=== PATIENT | female | born 1965 | race Caucasian/White ===

== ENCOUNTER 2022-12-07 10:11 | Inpatient (IN) | payer MEDICAID, OTHER ==
[~2022-12-07] VITALS: Ht 167.6 cm; Wt 101.8 kg
[2022-12-07] MEDS ORDERED: SODIUM CHLORIDE 0.9% 1,000 ML IV ONE (11:15)
[2022-12-07 11:34] VITALS: PULSE 80; RESP 20; O2SAT 97
[2022-12-07 11:46] LABS: Basophils # (auto) 0.1 10 ^3/uL (0-0.2); Eosinophils # (auto) 0.3 10 ^3/uL (0-0.8); Eosinophils % (auto) 2.7 % (0.0-7.0); Hematocrit 36.6 % (36.0-46.0); Hemoglobin 11.9 g/dL (12.2-16.2); Lymphocytes # (auto) 3.6 10 ^3/uL (0.4-5.4); Lymphocytes % (auto) 31.6 % (10.0-50.0); Mean Corpuscular Hemoglobin 27.6 pg (28.0-32.0); Mean Corpuscular Hgb Conc. 32.5 g/dL (32.0-36.0); Mean Corpuscular Volume 84.8 fL (80.0-100.0); Monocytes # (auto) 0.8 10 ^3/uL (0-1.3); Neutrophils # (auto) 6.5 10 ^3/uL (1.6-8.6); Neutrophils % (auto) 57.7 % (37.0-80.0); Nucleated Red Blood Cells % 0.1 %; Red Blood Cells 4.31 10^6/uL (4.0-5.20); White Blood Cell 11.3 10^3/uL (4.4-10.8)
[2022-12-07] MEDS ORDERED: HEPARIN DRIP/D5W 100UNITS/ML 250 ML IV SCH ×2 (12:00→17:45)
[2022-12-07 12:03] LABS: Alanine Aminotransferase 10 U/L (7-40); Albumin 3.6 g/dL (3.2-4.8); Alkaline Phosphatase 89 U/L (46-116); Anion Gap 7.1 (5-15); Aspartate Aminotransferase 13 U/L (13-40); BUN/Creatinine Ratio 14.7 (10.0-20.0); Blood Urea Nitrogen 22 mg/dL (9-23); Calcium 8.4 mg/dL (8.5-10.1); Carbon Dioxide 20.9 mmol/L (20-30); Chloride 108 mmol/L (98-107); Glucose 144 mg/dL (74-106); Magnesium 1.7 mg/dL (1.6-2.6); Potassium 5.4 mmol/L (3.5-5.1); Sodium 136 mmol/L (136-145)
[2022-12-07 12:04] LABS: Bilirubin, Total 0.4 mg/dL (0.2-1.0); Total Protein 6.1 g/dL (5.7-8.2)
[2022-12-07 12:07] LABS: INR 1.02 (0.9-1.15); Prothrombin Time 10.7 sec (9.3-11.8)
[2022-12-07] MEDS: SODIUM CHLORIDE 0.9% 1,000 ML IV SCH ×2 (12:15→23:16)
[2022-12-07] MEDS ORDERED: NITROGLYCERIN 0.4 MG SL TAB SL PRN (12:15)
[2022-12-07] MEDS ORDERED: ASPirin 81 mg TAB PO ONE (12:30)
[2022-12-07] MEDS: MORPHINE SULFATE INJ 2 MG/ml SYRG IV PRN ×4 (12:37→21:48)
[2022-12-07 17:16] LABS: INR 1.03 (0.9-1.15); Partial Thromboplastin Time 34.9 SEC (24.5-34.5); Prothrombin Time 10.8 sec (9.3-11.8)
[2022-12-07] MEDS ORDERED: HEPARIN SODIUM (PORCINE) 5000 UNITS/ML 1ML VIAL IV ONE (17:45)
[2022-12-07 19:30] VITALS: PULSE 74; RESP 18; O2SAT 98
[2022-12-07] MEDS ORDERED: DEXTROSE (50%) 50ML SYRG IV PRN (19:30)
[2022-12-07] MEDS: ONDANSETRON HCL 4 MG/2 ML VIAL IV PRN (20:41)
[2022-12-07] MEDS ORDERED: diphenhdrAMINE HCL 50 MG/1 ML VL ONE (21:13)
[2022-12-07] MEDS ORDERED: diphenhdrAMINE HCL 50 MG/1 ML VL IV PRN (21:15)
[2022-12-07] MEDS: ACCU-CHEK COMFORT CURVE STRIP VI SCH (23:00)
[2022-12-07] MEDS: InsuLIN REG 1unit/0.01ml Soln (100units/ml) SC SCH (23:00)
[2022-12-07] MEDS: ATORVASTATIN 20 MG TAB PO SCH (23:10)
[2022-12-07] MEDS: CARVEDILOL 3.125 MG TAB PO SCH (23:11)
[2022-12-08] VITALS (27 sets, daily range): BP systolic 120–169; BP diastolic 53–87; PULSE 66–79; RESP 10–20; TEMP 97.8–98.3; O2SAT 85–100
[2022-12-08 00:27] LABS: INR 1.08 (0.9-1.15); Prothrombin Time 11.3 sec (9.3-11.8)
[2022-12-08 00:46] LABS: Partial Thromboplastin Time > 139.0 SEC (24.5-34.5)
[2022-12-08] MEDS: HEPARIN DRIP/D5W 100UNITS/ML 250 ML IV SCH ×3 (04:30→15:35)
[2022-12-08] MEDS: SODIUM CHLORIDE 0.9% 1,000 ML IV SCH ×3 (05:28→21:35)
[2022-12-08] MEDS: InsuLIN REG 1unit/0.01ml Soln (100units/ml) SC SCH ×4 (06:48→22:00)
[2022-12-08] MEDS: ACCU-CHEK COMFORT CURVE STRIP VI SCH ×4 (06:48→22:20)
[2022-12-08 08:22] LABS: INR 1.03 (0.9-1.15); Partial Thromboplastin Time 55.7 SEC (24.5-34.5); Prothrombin Time 10.8 sec (9.3-11.8)
[2022-12-08 08:31] LABS: Albumin 3.7 g/dL (3.2-4.8); Alkaline Phosphatase 91 U/L (46-116); Anion Gap 5.7 (5-15); Aspartate Aminotransferase 15 U/L (13-40); BUN/Creatinine Ratio 13.3 (10.0-20.0); Bilirubin, Total 0.4 mg/dL (0.2-1.0); Blood Urea Nitrogen 19 mg/dL (9-23); Calcium 8.7 mg/dL (8.5-10.1); Carbon Dioxide 24.3 mmol/L (20-30); Chloride 109 mmol/L (98-107); Cholesterol 107 mg/dL (< 200); Glucose 103 mg/dL (74-106); HDL Cholesterol 29 mg/dL (40-59); LDL Cholesterol 58 mg/dL (< 100); Magnesium 1.6 mg/dL (1.6-2.6); Sodium 139 mmol/L (136-145); Total Protein 6.6 g/dL (5.7-8.2); Triglycerides 84 mg/dL (< 150)
[2022-12-08 08:32] LABS: Alanine Aminotransferase < 9 U/L (7-40)
[2022-12-08 09:01] LABS: Hematocrit 35.3 % (36.0-46.0); Hemoglobin 11.6 g/dL (12.2-16.2)
[2022-12-08] MEDS ORDERED: DOCU-265 PO (09:33)
[2022-12-08] MEDS ORDERED: ESOM40CA83 PO (09:33)
[2022-12-08] MEDS ORDERED: LIDO1PAD55 TOP (09:33)
[2022-12-08] MEDS ORDERED: HYDR-4072 PO (09:33)
[2022-12-08] MEDS ORDERED: CYCL-611 PO (09:33)
[2022-12-08] MEDS: ASPirin 81 mg TAB PO SCH (09:34)
[2022-12-08] MEDS: CARVEDILOL 3.125 MG TAB PO SCH ×2 (09:34→22:19)
[2022-12-08] MEDS: MORPHINE SULFATE INJ 2 MG/ml SYRG IV PRN ×3 (09:35→22:23)
[2022-12-08] MEDS: ONDANSETRON HCL 4 MG/2 ML VIAL IV PRN ×2 (09:42→15:11)
[2022-12-08 14:58] LABS: INR 1.04 (0.9-1.15); Partial Thromboplastin Time 48.5 SEC (24.5-34.5); Prothrombin Time 10.9 sec (9.3-11.8)
[2022-12-08] MEDS: ATORVASTATIN 20 MG TAB PO SCH (22:19)
[2022-12-08 22:20] LABS: INR 1.04 (0.9-1.15); Partial Thromboplastin Time 55.6 SEC (24.5-34.5); Prothrombin Time 10.9 sec (9.3-11.8)
[2022-12-09] MEDS: ONDANSETRON HCL 4 MG/2 ML VIAL IV PRN ×3 (04:03→16:43)
[2022-12-09] MEDS: MORPHINE SULFATE INJ 2 MG/ml SYRG IV PRN ×4 (04:04→22:09)
[2022-12-09] MEDS: SODIUM CHLORIDE 0.9% 1,000 ML IV SCH ×3 (05:12→21:16)
[2022-12-09] MEDS: ACCU-CHEK COMFORT CURVE STRIP VI SCH ×4 (06:16→22:00)
[2022-12-09] MEDS: InsuLIN REG 1unit/0.01ml Soln (100units/ml) SC SCH ×4 (06:16→22:00)
[2022-12-09 06:28] LABS: Alanine Aminotransferase 12 U/L (7-40); Alkaline Phosphatase 97 U/L (46-116); Anion Gap 5.9 (5-15); Aspartate Aminotransferase 10 U/L (13-40); BUN/Creatinine Ratio 12.3 (10.0-20.0); Blood Urea Nitrogen 16 mg/dL (9-23); Calcium 8.5 mg/dL (8.7-10.4); Carbon Dioxide 25.1 mmol/L (20-30); Chloride 108 mmol/L (98-107); Glucose 103 mg/dL (74-106); Potassium 5.3 mmol/L (3.5-5.1); Sodium 139 mmol/L (136-145)
[2022-12-09 06:29] LABS: Albumin 3.4 g/dL (3.2-4.8); Bilirubin, Total 0.5 mg/dL (0.2-1.0); Total Protein 5.8 g/dL (5.7-8.2)
[2022-12-09 06:34] LABS: INR 1.07 (0.9-1.15); Partial Thromboplastin Time 54.4 SEC (24.5-34.5); Prothrombin Time 11.2 sec (9.3-11.8)
[2022-12-09] MEDS: HEPARIN DRIP/D5W 100UNITS/ML 250 ML IV SCH ×2 (06:47→21:23)
[2022-12-09 07:16] LABS: Basophils # (auto) 0 10 ^3/uL (0-0.2); Basophils % (auto) 0.6 % (0.0-2.0); Eosinophils # (auto) 0.2 10 ^3/uL (0-0.8); Eosinophils % (auto) 2.8 % (0.0-7.0); Hematocrit 33.3 % (36.0-46.0); Hemoglobin 10.9 g/dL (12.2-16.2); Lymphocytes # (auto) 2.9 10 ^3/uL (0.4-5.4); Mean Corpuscular Hgb Conc. 32.7 g/dL (32.0-36.0); Mean Corpuscular Volume 85.7 fL (80.0-100.0); Monocytes # (auto) 0.6 10 ^3/uL (0-1.3); Monocytes % (auto) 6.6 % (0.0-12.0); Neutrophils # (auto) 4.7 10 ^3/uL (1.6-8.6); Nucleated Red Blood Cells % 0.1 %; Red Blood Cells 3.89 10^6/uL (4.0-5.20); Red Cell Distribution Width 14.8 % (11.8-14.3); White Blood Cell 8.4 10^3/uL (4.4-10.8)
[2022-12-09 09:00] VITALS: BP 109/58; PULSE 78; RESP 21; TEMP 98.4; O2SAT 97
[2022-12-09] MEDS: ASPirin 81 mg TAB PO SCH (09:36)
[2022-12-09] MEDS: CARVEDILOL 3.125 MG TAB PO SCH ×2 (09:37→22:00)
[2022-12-09 17:09] VITALS: BP 114/62; PULSE 79; RESP 17; TEMP 98.7
[2022-12-09] MEDS: ACETAMINOPHEN 325 MG TAB PO PRN (19:27)
[2022-12-09 19:50] LABS: INR 1.07 (0.9-1.15); Partial Thromboplastin Time 48.6 SEC (24.5-34.5); Prothrombin Time 11.2 sec (9.3-11.8)
[2022-12-09 20:00] VITALS: PULSE 70; RESP 16
[2022-12-09] MEDS: SODIUM ZIRCONIUM CYCL 10 GM PAK PO SCH ×2 (21:37→22:00)
[2022-12-09 22:00] VITALS: BP 157/91; PULSE 82; RESP 16; TEMP 98; O2SAT 95
[2022-12-09] MEDS: ATORVASTATIN 20 MG TAB PO SCH (23:54)
[2022-12-10] VITALS (12 sets, daily range): BP systolic 117–188; BP diastolic 56–97; PULSE 68–96; RESP 11–19; TEMP 97.8–98.6; O2SAT 93–99
[2022-12-10] MEDS: HYDROcodone-ACET 5/325MG TAB PO PRN ×2 (01:44→18:11)
[2022-12-10 03:30] LABS: Basophils # (auto) 0.1 10 ^3/uL (0-0.2); Basophils % (auto) 1.1 % (0.0-2.0); Eosinophils # (auto) 0.3 10 ^3/uL (0-0.8); Eosinophils % (auto) 3.5 % (0.0-7.0); Hematocrit 31.4 % (36.0-46.0); Hemoglobin 10.4 g/dL (12.2-16.2); Lymphocytes # (auto) 3.4 10 ^3/uL (0.4-5.4); Mean Corpuscular Hemoglobin 27.9 pg (28.0-32.0); Mean Corpuscular Volume 84.5 fL (80.0-100.0); Monocytes # (auto) 0.5 10 ^3/uL (0-1.3); Monocytes % (auto) 6.9 % (0.0-12.0); Neutrophils # (auto) 3.4 10 ^3/uL (1.6-8.6); Neutrophils % (auto) 44.5 % (37.0-80.0); Red Blood Cells 3.72 10^6/uL (4.0-5.20); Red Cell Distribution Width 14.3 % (11.8-14.3); White Blood Cell 7.7 10^3/uL (4.4-10.8)
[2022-12-10 03:41] LABS: Alanine Aminotransferase 10 U/L (7-40); Albumin 3.4 g/dL (3.2-4.8); Alkaline Phosphatase 90 U/L (46-116); Anion Gap 5.6 (5-15); Aspartate Aminotransferase 11 U/L (13-40); BUN/Creatinine Ratio 9.2 (10.0-20.0); Blood Urea Nitrogen 13 mg/dL (9-23); Calcium 8.3 mg/dL (8.7-10.4); Carbon Dioxide 24.4 mmol/L (20-30); Chloride 107 mmol/L (98-107); Glucose 110 mg/dL (74-106); Potassium 4.6 mmol/L (3.5-5.1); Sodium 137 mmol/L (136-145); Total Protein 5.8 g/dL (5.7-8.2)
[2022-12-10 03:50] LABS: INR 1.09 (0.9-1.15); Prothrombin Time 11.4 sec (9.3-11.8)
[2022-12-10 04:03] LABS: Bilirubin, Total 0.3 mg/dL (0.2-1.0)
[2022-12-10 04:11] LABS: Partial Thromboplastin Time 91.6 SEC (24.5-34.5)
[2022-12-10] MEDS ORDERED: HEPARIN DRIP/D5W 100UNITS/ML 250 ML IV SCH ×3 (05:30→22:30)
[2022-12-10] MEDS: SODIUM ZIRCONIUM CYCL 10 GM PAK PO SCH ×3 (06:00→22:00)
[2022-12-10] MEDS: InsuLIN REG 1unit/0.01ml Soln (100units/ml) SC SCH ×4 (06:26→22:00)
[2022-12-10] MEDS: ACCU-CHEK COMFORT CURVE STRIP VI SCH ×4 (06:27→22:26)
[2022-12-10] MEDS: SODIUM CHLORIDE 0.9% 1,000 ML IV SCH ×3 (06:33→23:35)
[2022-12-10] MEDS: MORPHINE SULFATE INJ 2 MG/ml SYRG IV PRN ×4 (06:47→22:33)
[2022-12-10] MEDS: ASPirin 81 mg TAB PO SCH (10:04)
[2022-12-10] MEDS: CARVEDILOL 3.125 MG TAB PO SCH ×2 (10:05→21:38)
[2022-12-10 12:28] LABS: INR 1.06 (0.9-1.15); Prothrombin Time 11.1 sec (9.3-11.8)
[2022-12-10] MEDS ORDERED: HEPARIN SODIUM (PORCINE) 5000 UNITS/ML 1ML VIAL ONE (14:30)
[2022-12-10] MEDS ORDERED: ANGIOMAX 250 MG VIAL IV ONE (14:30)
[2022-12-10] MEDS ORDERED: VERAPAMIL 2.5MG/ML INJ 2ML VIAL IV ONE (14:30)
[2022-12-10] MEDS ORDERED: fentaNYL CITRATE 100 MCG/2 ML VL ONE (14:30)
[2022-12-10] MEDS ORDERED: MIDAZOLAM HCL 2MG/2ML 2ml VIAL (1mg/ml) ONE (14:30)
[2022-12-10] MEDS ORDERED: LIDOCAINE 2%HCL (LOCAL ANESTH.) INJ 20ML MDV ONE (14:31)
[2022-12-10] MEDS ORDERED: IODIXANOL 320MG/ML 100ML BTL IV ONE (14:31)
[2022-12-10] MEDS ORDERED: SODIUM CHL 0.9% 0 ML ONE (14:31)
[2022-12-10] MEDS ORDERED: hydrALAZINE HCL 20 MG/ML VL IV PRN (16:45)
[2022-12-10 17:37] LABS: Basophils # (auto) 0.1 10 ^3/uL (0-0.2); Basophils % (auto) 0.7 % (0.0-2.0); Eosinophils # (auto) 0.3 10 ^3/uL (0-0.8); Eosinophils % (auto) 3.1 % (0.0-7.0); Hematocrit 36.4 % (36.0-46.0); Lymphocytes # (auto) 2.9 10 ^3/uL (0.4-5.4); Lymphocytes % (auto) 31.6 % (10.0-50.0); Mean Corpuscular Hemoglobin 27.7 pg (28.0-32.0); Monocytes # (auto) 0.6 10 ^3/uL (0-1.3); Monocytes % (auto) 6.3 % (0.0-12.0); Neutrophils # (auto) 5.4 10 ^3/uL (1.6-8.6); Neutrophils % (auto) 58.3 % (37.0-80.0); Red Blood Cells 4.33 10^6/uL (4.0-5.20); Red Cell Distribution Width 14.9 % (11.8-14.3); White Blood Cell 9.3 10^3/uL (4.4-10.8)
[2022-12-10 19:10] LABS: Protein, Urine 30.3 mg/dL (0.0-11.9)
[2022-12-10 19:12] LABS: Creatinine, Urine 8.75 mg/dL (30.0-125.0); Urine Protein/Creatinine Ratio 3.46
[2022-12-10 19:23] LABS: Urine Bacteria FEW /hpf (None Seen); Urine Blood Negative /uL (Negative); Urine Clarity Clear (Clear); Urine Color Colorless (Yellow); Urine Hyaline Cast FEW /lpf (0 - 2); Urine Protein, UAD TRACE (Negative); Urine Specific Gravity 1.009 (1.001-1.035); Urine Urobilinogen Normal (Negative); Urine WBC <1 /hpf (0 - 5); Urine pH 6.5 (5.0-8.0)
[2022-12-10 19:42] LABS: INR 1.07 (0.9-1.15); Partial Thromboplastin Time 47.8 SEC (24.5-34.5); Prothrombin Time 11.2 sec (9.3-11.8)
[2022-12-10 22:00] LABS: INR 1.1 (0.9-1.15); Partial Thromboplastin Time 42.2 SEC (24.5-34.5); Prothrombin Time 11.5 sec (9.3-11.8)
[2022-12-10] MEDS: ATORVASTATIN 20 MG TAB PO SCH (22:31)
[2022-12-10] MEDS: ACETAMINOPHEN 325 MG TAB PO PRN (22:32)
[2022-12-11] MEDS: ONDANSETRON HCL 4 MG/2 ML VIAL IV PRN (02:14)
[2022-12-11 05:00] VITALS: BP 123/62; PULSE 72; RESP 16; TEMP 98.3; O2SAT 94
[2022-12-11] MEDS: SODIUM ZIRCONIUM CYCL 10 GM PAK PO SCH ×2 (05:44→15:35)
[2022-12-11 06:20] LABS: INR 1.12 (0.9-1.15); Partial Thromboplastin Time 48.7 SEC (24.5-34.5); Prothrombin Time 11.7 sec (9.3-11.8)
[2022-12-11] MEDS: MORPHINE SULFATE INJ 2 MG/ml SYRG IV PRN ×3 (07:32→16:52)
[2022-12-11] MEDS: SODIUM CHLORIDE 0.9% 1,000 ML IV SCH ×2 (07:55→16:15)
[2022-12-11] MEDS: HEPARIN DRIP/D5W 100UNITS/ML 250 ML IV SCH ×2 (08:48→11:50)
[2022-12-11 09:00] VITALS: BP 134/67; PULSE 84; RESP 18; TEMP 97.9; O2SAT 97
[2022-12-11] MEDS: ACCU-CHEK COMFORT CURVE STRIP VI SCH ×3 (09:29→16:59)
[2022-12-11] MEDS: ACETAMINOPHEN 325 MG TAB PO PRN (09:29)
[2022-12-11] MEDS: ASPirin 81 mg TAB PO SCH (09:29)
[2022-12-11] MEDS: CARVEDILOL 3.125 MG TAB PO SCH (09:31)
[2022-12-11 09:46] LABS: Chloride 106 mmol/L (98-107); Potassium 3.8 mmol/L (3.5-5.1); Sodium 139 mmol/L (136-145)
[2022-12-11] MEDS: InsuLIN REG 1unit/0.01ml Soln (100units/ml) SC SCH ×3 (09:47→16:57)
[2022-12-11 09:48] LABS: Anion Gap 10.1 (5-15); Calcium 8.5 mg/dL (8.5-10.1); Carbon Dioxide 22.9 mmol/L (20-30)
[2022-12-11 09:53] LABS: BUN/Creatinine Ratio 10.3 (10.0-20.0); Blood Urea Nitrogen 12 mg/dL (9-23); Glucose 89 mg/dL (74-106)
[2022-12-11 13:39] LABS: COVID19 ANTIGEN SOFIA FIA NEGATIVE (NEGATIVE)
[2022-12-11 14:07] VITALS: BP 120/64; PULSE 87; TEMP 36.6
[2022-12-11 14:21] LABS: INR 1.11 (0.9-1.15); Partial Thromboplastin Time 44.1 SEC (24.5-34.5); Prothrombin Time 11.6 sec (9.3-11.8)
[2022-12-11] MEDS ORDERED: HEPARIN DRIP/D5W 100UNITS/ML 250 ML IV SCH (16:15)
[2022-12-11 16:38] VITALS: BP 141/77; PULSE 70; RESP 20; TEMP 98.7; O2SAT 98
[2022-12-11 17:22] VITALS: BP 141/75; PULSE 80; RESP 20
== END 2022-12-11 17:47 | disposition short-term general hospital (02) | DRG 190 ==
LOC: ER 10:11 → EDBD 10:11 → TELE 12:19 → DOU IN ICU 23:52 → TELE-WESTW 12-08 23:15
PROVIDERS: ADMIT Internal Medicine; ATTEND Internal Medicine
PROC: 4A023N7 Measurement of Cardiac Sampling and Pressure, Left Heart, Percutaneous Approach (ICD-10-PCS; principal; 2022-12-10)
PROC: B211YZZ Fluoroscopy of Multiple Coronary Arteries using Other Contrast (ICD-10-PCS; 2022-12-10)
PROC: B215YZZ Fluoroscopy of Left Heart using Other Contrast (ICD-10-PCS; 2022-12-10)
DX: I21.4 Non-ST elevation (NSTEMI) myocardial infarction (principal); N17.0 Acute kidney failure with tubular necrosis; E11.22 Type 2 diabetes mellitus with diabetic chronic kidney disease; D63.1 Anemia in chronic kidney disease; I13.0 Hypertensive heart and chronic kidney disease with heart failure and stage 1 through stage 4 chronic kidney disease, or unspecified chronic kidney disease; I25.10 Atherosclerotic heart disease of native coronary artery without angina pectoris; E11.51 Type 2 diabetes mellitus with diabetic peripheral angiopathy without gangrene; E87.5 Hyperkalemia; N18.32 Chronic kidney disease, stage 3b; K21.9 Gastro-esophageal reflux disease without esophagitis; M54.50 Low back pain, unspecified; F12.90 Cannabis use, unspecified, uncomplicated; E66.01 Morbid (severe) obesity due to excess calories; G89.29 Other chronic pain; E78.5 Hyperlipidemia, unspecified; I25.5 Ischemic cardiomyopathy; J44.9 Chronic obstructive pulmonary disease, unspecified; Z82.49 Family history of ischemic heart disease and other diseases of the circulatory system; Z83.3 Family history of diabetes mellitus; Z95.820 Peripheral vascular angioplasty status with implants and grafts; Z85.528 Personal history of other malignant neoplasm of kidney; Z68.36 Body mass index [BMI] 36.0-36.9, adult; I25.2 Old myocardial infarction; Z90.49 Acquired absence of other specified parts of digestive tract; Z90.5 Acquired absence of kidney; Z95.1 Presence of aortocoronary bypass graft; Z87.891 Personal history of nicotine dependence
CPT/HCPCS: 36415; 71045; 76775; 80048; 80053; 80061; 81001; 82306; 82570; 82962; 83735; 83970; 84100; 84156; 84300; 84443; 84484; 85014; 85018; 85025; 85049; 85610; 85730; 87081; 87426; 93005; 93306; 93458; 96365; 96366; 96375; 97163; 99152; G0378; J1815; J2250; J2405; Q9967

== ENCOUNTER 2023-06-09 07:54 | Day surgery (SDC) | payer MEDICAID ==
[2023-06-09] VITALS (8 sets, daily range): BP systolic 157–177; BP diastolic 80–102; PULSE 81–85; RESP 11–19; TEMP 97.7; O2SAT 96–97
[~2023-06-09] VITALS: Ht 170.2 cm; Wt 97.1 kg
[~2023-06-09 07:54] MED LIST: ASPI-378 PO; ATOR-47 PO; CARV3.1240 PO; CLOP75TA70 PO; CYCL-611 PO; DOCU-265 PO; ESOM40CA83 PO; GLIP5TAB5 PO; HYDR-4072 PO; PERCOT PO
[2023-06-09] MEDS ORDERED: ANGIOMAX 250 MG VIAL IV ONE (08:52)
[2023-06-09] MEDS ORDERED: VERAPAMIL 2.5MG/ML INJ 2ML VIAL IV ONE (08:52)
[2023-06-09] MEDS ORDERED: LIDOCAINE 2%HCL (LOCAL ANESTH.) INJ 20ML MDV ONE (08:52)
[2023-06-09] MEDS ORDERED: SODIUM CHL 0.9% 0 ML ONE (08:52)
[2023-06-09] MEDS ORDERED: fentaNYL CITRATE 100 MCG/2 ML VL ONE (08:52)
[2023-06-09] MEDS ORDERED: IODIXANOL 320MG/ML 100ML BTL IV ONE (08:52)
[2023-06-09] MEDS ORDERED: MIDAZOLAM HCL 2MG/2ML 2ml VIAL (1mg/ml) ONE (08:52)
[2023-06-09] MEDS ORDERED: HEPARIN SODIUM (PORCINE) 5000 UNITS/ML 1ML VIAL ONE (08:52)
[2023-06-09] MEDS: HYDROcodone-ACET 5/325MG TAB PO ONE (11:47)
== END 2023-06-09 12:53 | disposition home or self-care (01) ==
LOC: CATH 07:54
PROVIDERS: ATTEND Internal Medicine
DX: I25.799 Atherosclerosis of other coronary artery bypass graft(s) with unspecified angina pectoris (principal); R94.39 Abnormal result of other cardiovascular function study; I25.82 Chronic total occlusion of coronary artery; E11.9 Type 2 diabetes mellitus without complications; Z95.828 Presence of other vascular implants and grafts; Z85.528 Personal history of other malignant neoplasm of kidney; Z82.49 Family history of ischemic heart disease and other diseases of the circulatory system; Z80.42 Family history of malignant neoplasm of prostate; Z87.891 Personal history of nicotine dependence; Z79.82 Long term (current) use of aspirin; Z79.01 Long term (current) use of anticoagulants; Z79.899 Other long term (current) drug therapy; Z98.890 Other specified postprocedural states
CPT/HCPCS: 93459; C1894; J1644; J2250; J3010; J7030; Q9967; 99152